=== PATIENT | female | born 1975 | race Caucasian/White ===

== ENCOUNTER → 2020-12-29 02:43 | Outpatient (CLI) | payer BC, SELFPAY ==
[2020-12-29 18:14] LABS: SARS-CoV-2 RNA PCR Negative
== END ==
PROVIDERS: Visit Provider Obstetrics & Gynecology
DX: Z01.812 Encounter for preprocedural laboratory examination (principal); Z20.822 Contact with and (suspected) exposure to COVID-19
CPT/HCPCS: C9803; U0003; U0005

== ENCOUNTER 2020-12-29 08:36 | Outpatient (CLI) | payer BC, SELFPAY ==
--- NOTE | 2020-12-29 08:45 | ECG_ITS ---
Measurements Intervals [place] Rate: 78 P: 38 DC: 202 QRS: 7 QRSD: 76 T: 6 QT: 366 QTc: 419 Interpretive Statements SINUS RHYTHM LOW QRS VOLTAGE IN PRECORDIAL LEADS BASELINE ARTIFACT- I, III, AVR, AVL, AVF, V1, V3 BORDERLINE ECG Electronically Signed On 12-29-2020 9:06:34 CDT by Bakari Lu D.O.
[2020-12-29 09:05] LABS: Anion Gap 9 mmol/L (8-16); Blood Urea Nitrogen 12 mg/dL (7-17); Calcium 10.1 mg/dL (8.4-10.2); Carbon Dioxide 27 mmol/L (22-30); Chloride 105 mmol/L (98-107); Estimated Glomerular Filt Rate > 60; Glucose 131 mg/dL (65-105); Potassium 4.4 mmol/L (3.4-5.0); Sodium 141 mmol/L (137-145)
== END 2020-12-29 08:37 | disposition home or self-care (01) ==
PROVIDERS: Anesthesiology; PCP Family Medicine; Visit Provider Obstetrics & Gynecology
DX: R10.2 Pelvic and perineal pain (principal); E11.9 Type 2 diabetes mellitus without complications; E78.5 Hyperlipidemia, unspecified; Z01.818 Encounter for other preprocedural examination
CPT/HCPCS: 36415; 80048; 81479; 86850; 86860; 86870; 86880; 86900; 86901; 86902; 86971; 93005

== ENCOUNTER 2021-01-01 01:21 | Day surgery (SDC) | payer BC, SELFPAY ==
[2020-12-21 09:44] VITALS: BMI 34.2
[2021-01-01] VITALS (14 sets, daily range): BP systolic 111–143; BP diastolic 68–83; PULSE 61–80; RESP 14–20; TEMP 36.4–37.2; O2SAT 96–100
--- NOTE | 2021-01-01 07:22 | WPDHPUPDATE1 ---
History and Physical Update Update Date/Time: 01/01/21 07:22 History and Physical has been reviewed, including an updated exam of the patient. There are NO changes in the patient's condition. Risks, benefits, and alternatives have been discussed and questions answered. Patient agrees to proceed with procedure.
[2021-01-01] MEDS: ACETAMINOPHEN 500 MG TABLET 1000 MG PO (07:47)
[2021-01-01] MEDS: LACTATED RINGERS 1,000 ML 30 ML IV CONT ×2 (07:55→10:35)
--- NOTE | 2021-01-01 07:58 | WPDANESEPPF ---
Anes - Initial Pre Proc Eval Procedure: Operation Date: 01/01/21 08:30 Proposed Procedures p Total Laparoscopic Hysterectomy with Bilateral Salpingo-Oophorectomy - Carline Bhatia MD Date/Time: 01/01/21 07:58 Surgeon: Carline Bhatia MD Pre Op Diagnosis: pelvic pain Patient Data Age: 45 Gender: F Height: 5 ft 5 in Weight: 93.44 kg Allergies Allergy/AdvReac Type Severity Reaction Status Date / Time No Known Allergies Allergy Verified 01/01/21 07:39 Home Medications Medication Instructions Recorded Confirmed Type atorvastatin 40 mg PO DAILY 12/21/20 01/01/21 History levothyroxine 100 mcg PO DAILY 12/21/20 01/01/21 History lisinopril 5 mg PO DAILY 12/21/20 01/01/21 History metformin 500 mg PO DAILY 12/21/20 01/01/21 History Patient hx anesthesia problems: none Family hx anesthesia problems: none PMFSH Past Medical History Medical History Diabetes Hyperlipidemia Hypertension Hypothyroid Social History Social History Smoking packs per day: 0.75 Smoking cigarettes per day: 15.0 Years smoked: 25 Smoking pack-years: 18.75 Smoking status: Current every day smoker Tobacco type: cigarettes Alcohol intake: current Drinks per week: 2 Substance use: never Substance use type: does not use Living arrangements: with family Spiritual care concerns: No Anes - Eval Final PreProcedure Day of Procedure 01/01/21 07:58 Patient weight: obese Heart: regular rate and rhythm Lungs: decreased breath sounds Airway: Mallampati scale class II Neurological: alert and oriented Last oral intake: >/= 8 hours ASA classification: III Emergent: no Anesthetic plan: proceed Anesthesia type and monitoring: general ETT and standard monitoring Informed Consent: The patient's anesthetic plan and its attendant risks and benefits were discussed with the patient/family/POA. Questions were solicited and answers provided to the satisfaction of the patient/family/POA.
[2021-01-01 08:00] LABS: Glucose Point of Care 172 mg/dl (65-105)
--- NOTE | 2021-01-01 08:04 | PM.PROC ---
Procedure Note - Detailed Date of procedure: 01/01/21 Pre-op diagnosis: pelvic pain Menorrhagia Post-op diagnosis: same Procedure performed: Hysteroscopy, endometrial ablation Description of procedure: The patient was taken the operating room. She has prepped and draped in the dorsal lithotomy position. Speculum was placed the vagina. The cervix grasped with a tenaculum. The cervix was injected at 3 and 9:00 a.m. with 1% lidocaine. The hysteroscope was inserted the intrauterine cavity through the cervix. The above findings were noted. The hysteroscope and uterine sound were used to calculate endometrial cavity length. The endometrial cavity length was entered into the device hand piece. The device was placed in the intrauterine cavity and the array was expanded. The balloon cuff was inflated. The power and safety checks were initiated. Never completed the array was collapsed and the balloon cuff was collapsed. The device was withdrawn. The hysteroscope was inserted back into the intrauterine cavity and well desiccated endometrial cavity was observed. The speculum was removed. The tenaculum was removed. The patient tolerated procedure well. She is take covering stable condition. Anesthesia: MAC Surgeon: Carline Bhatia MD Estimated blood loss (mL): 15 Drains: No Packing: No Pathology: yes Complications: No immediate complications Condition: stable Disposition: PACU Findings: Normal appearing vulva vagina and cervix., normal-appearing intrauterine cavity.
[2021-01-01] MEDS: ceFAZolin 2 GM/D5W 50 ML 2 GM/50 ML BAG IVPB (08:19)
[2021-01-01] MEDS: KETOROLAC 30 MG/ML VIAL (*BKC) IV PUSH ×2 (10:14→16:57)
--- NOTE | 2021-01-01 10:39 | P.OP_ITS ---
Procedure Note - Detailed Date of procedure: 01/01/21 Pre-op diagnosis: pelvic pain Severe menorrhagia Post-op diagnosis: same Procedure performed: Total laparoscopic hysterectomy bilateral salpingo- oophorectomy Description of procedure: The patient was taken to the operating room. She was prepped and draped in the dorsal lithotomy position. A speculum was placed in the vagina. The cervix was grasped with a tenaculum. Stay sutures were placed at 3 and 9:00 a.m. of 0 Vicryl. The stay sutures were brought through the Donna up. The DIMITRI manipulator was placed in the vagina with a fixed Donna cup. The cup was then pushed up around the cervix. The sutures were tied to the handle of the DIMITRI manipulator. A 5 mm incision was made on the abdominal skin of the left upper quadrant using a scalpel. A 5 mm trocar was inserted into the intra-abdominal cavity under direct visualization the scope. Pneumoperitoneum was achieved. An 11 mm incision was made in the left lower quadrant of the abdomen with a scalpel. A 11 mm trocar was inserted into the intra-abdominal cavity under direct visualization the scope. A 5 mm periumbilical incision was made. A 5 mm scope was placed into the intra-abdominal cavity under direct visualization of the scope. The ureters were identified. The ureters were observed to be away from the infundibulopelvic ligaments. These infundibulopelvic ligaments were isolated, cauterized, and transected with LigaSure cautery. This was done in a bilateral fashion. The para ovarian tissue along the pelvic sidewall was cauterized and transected in a bilateral fashion using the ligature cautery. The round ligaments were cauterized and transected bilaterally with LigaSure cautery. The broad ligaments were cauterized and transected along the lateral aspects of the uterus down the level of the uterine arteries. A bladder flap was created using sharp and blunt dissection. The ureters were dissected out bilaterally down to the level of the uterine arteries. The could be visualized from the pelvic brim down the uterine arteries. Staying very close to the cervix the parametrium was cauterized transected in a stepwise fashion down to the level of the Donna cup. The Bladder flap was moved distally over the Donna cup using sharp and blunt dissection. The cup was visualized and a complete 360 degree papillary around the cervix. An incision was made with unipolar cautery down under the Donna cup creating a colpotomy incision all the way around the cervix. The uterus tubes and ovaries were taken out through the vagina. A pneumo occluder was placed in the vagina. The vagina was closed with 0 V lock suture in a running fashion. The ureters were identified again and found to be intact elevated and the uterine arteries. The pelvis was irrigated with a copious amount of antibiotic irrigation. The pneumoperitoneum was reduced. The trocars were removed. The skin was closed subcuticular 4 Monocryl covered with Dermabond. The pneumo occluder was removed from the vagina. The vagina was irrigated with Betadine. The patient tolerated the procedure well. She was taken to the recovery room in stable condition. Sponge lap and needle counts were correct x2. Anesthesia: GETA Surgeon: Carline Bhatia MD Estimated blood loss (mL): 200 Drains: No Packing: No Pathology: yes Complications: No immediate complications Condition: stable Disposition: PACU Findings: Grossly normal-appearing uterus tubes and ovaries. Marked vascularity around uterus
[2021-01-01 10:44] LABS: Glucose Point of Care 205 mg/dl (65-105)
--- NOTE | 2021-01-01 10:58 | SUR.PHASEI ---
GLUCOSE 205 AT 1038, DR PACE NOTIFIED. NO ORDERS AT THIS TIME.
[2021-01-01] MEDS: fentaNYL CITRATE INJ (*CRX) 100 MCG/2 ML VIAL 25 MCG IV PUSH ×4 (11:43→12:06)
--- NOTE | 2021-01-01 12:12 | OBPPTRN ---
Addendum entered by Jonna Rodriguez RN 01/01/21 14:14: Patient transferred to post room # [id number] via bed. Support person present. Oriented to unit, room, information board, rooming in, admission packet and security measures. Patient verbalizes understanding. Original Note: Patient transferred to post room # via ( ). Support person present. Oriented to unit, room, information board, rooming in, admission packet and security measures. Patient verbalizes understanding.
[2021-01-01] MEDS: DEXTROSE 5%/0.45% SOD CHL 1,000 ML 125 ML IV CONT (12:51)
[2021-01-01] MEDS: metFORMIN HCL XR 500 MG TAB.SR.24H PO (12:51)
[2021-01-01] MEDS: ATORVASTATIN 40 MG TABLET PO (12:51)
[2021-01-01] MEDS: ESTRADIOL 7 DAY 0.05 MG PATCH TRANSDERM (12:51)
[2021-01-01] MEDS: HYDROcodone/acetaminophen (*CRX) 5-325 MG TABLET 1 TAB PO ×2 (13:02→22:22)
[2021-01-01] MEDS: lisinopriL 5 MG TABLET PO (13:02)
[2021-01-01 17:17] LABS: Glucose Point of Care 213 mg/dl (65-105)
[2021-01-01] MEDS: SODIUM CHLORIDE 0.9% IV 1,000 ML 125 ML IV CONT (17:41)
[2021-01-02 04:45] VITALS: BP 134/84; PULSE 90; RESP 16; TEMP 37.1
[2021-01-02] MEDS: HYDROcodone/acetaminophen (*CRX) 5-325 MG TABLET 1 TAB PO (04:50)
[2021-01-02] MEDS: LEVOTHYROXINE SODIUM 100 MCG TABLET PO (06:08)
[2021-01-02] MEDS: lisinopriL 5 MG TABLET PO (07:36)
[2021-01-02] MEDS: ATORVASTATIN 40 MG TABLET PO (07:36)
[2021-01-02] MEDS: metFORMIN HCL XR 500 MG TAB.SR.24H PO (07:36)
[2021-01-02 07:45] VITALS: BP 126/82; PULSE 91; RESP 16; TEMP 37.2; O2SAT 100
[2021-01-02] MEDS: IBUPROFEN 600 MG TABLET PO (09:01)
--- NOTE | 2021-01-02 09:48 | WPDANESPN ---
Anes - Prog Note Post-Op Date/Time: 01/02/21 09:48 Cardiovascular status: normal Respiratory status: normal Airway patency: baseline Mental status: baseline Post-Op hydration status: normal Vital Signs: Last Vital Signs Temp 37.2 C 01/02/21 07:45 Pulse 91 01/02/21 07:45 Resp 16 01/02/21 07:45 BP 126/82 01/02/21 07:45 Pulse Ox 100 01/02/21 07:45 Pain Score (VAS): 08/09 I/O: Intake & Output 01/01/21 01/02/21 01/02/21 23:59 07:59 15:59 Intake Total 1800 Output Total 1700 Balance 100 01/01/21 01/01/21 10:37 17:08 POC Capillary Glucose 205 H 213 H Post-procedural complaints: none Patient Feedback: Patient satisfied with anesthetic care.
--- NOTE | 2021-01-02 09:56 | PM.GYNPNOP ---
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:Subj Post-Op Subjective Date/time seen: 01/02/21 09:56 Subjective: patient reports feeling better, pain is well controlled and patient is tolerating oral intake Exam Const: General: cooperative, healthy appearing, comfortable and no acute distress Resp: Auscultation: no crackles, no rales, no rhonchi and no wheezes Cardio: Rhythm: regular rhythm Heart sounds: no click and no murmurs GI: Inspection: non-distended Auscultation: normal bowel sounds Other: Incisions - CDI Extrem: General: normal to inspection, no pedal edema and no calf tenderness 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 THREAD MACHINE 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 - PN: Obj Data Vital Signs Vital Signs: Vital Signs - 24 hr 01/01/21 10:35 01/01/21 10:45 01/01/21 11:00 Temperature 98 F Pulse Rate 72 63 67 Respiratory Rate 18 20 20 Blood Pressure 111/69 135/68 135/75 Pulse Oximetry 98 100 100 01/01/21 11:15 01/01/21 11:30 01/01/21 11:45 Temperature Pulse Rate 61 66 77 Respiratory Rate 14 14 15 Blood Pressure 130/83 137/69 130/73 Pulse Oximetry 100 99 98 01/01/21 12:00 01/01/21 12:07 01/01/21 12:20 Temperature 98.3 F Pulse Rate 74 71 64 Respiratory Rate 19 20 16 Blood Pressure 138/79 136/80 143/76 H Pulse Oximetry 96 97 96 01/01/21 13:00 01/01/21 17:00 01/01/21 19:30 Temperature 98.9 F 98.1 F Pulse Rate 78 67 Respiratory Rate 20 17 Blood Pressure 131/76 133/77 Pulse Oximetry 97 01/01/21 22:25 01/02/21 04:45 01/02/21 07:45 Temperature 98.0 F 98.7 F 98.9 F Pulse Rate 64 90 91 Respiratory Rate 17 16 16 Blood Pressure 130/71 134/84 126/82 Pulse Oximetry 100 Intake/Output Intake/Output: Intake & Output 12/30/20 12/31/20 01/01/21 01/02/21 23:59 23:59 23:59 23:59 Intake Total 200 1800 Output Total 160 1700 Balance 40 100 Meds/Results Medications: Active Medications Generic Name Dose Route Start Last Admin Trade Name Freq PRN Reason Stop Dose Admin Hydrocodone Bitart/Acetaminophen 1 tab 01/01/21 12:09 01/02/21 04:50 Hydrocodone/Acetaminophen (*Crx) 5-325 Mg Tablet PO 1 tab Q3H PRN Administration Pain Rated 5 or Less Hydrocodone Bitart/Acetaminophen 1 tab 01/01/21 12:09 Hydrocodone/Acetaminophen (*Crx) 10-325 Mg Tablet PO Q3H PRN Pain Rated 6 or Greater Atorvastatin Calcium 40 mg 01/01/21 13:00 01/02/21 07:36 Atorvastatin 40 Mg Tablet PO 40 mg DAILY LISA Administration Estradiol 0.05 mg 01/01/21 13:00 01/01/21 12:51 Estradiol 7 Day 0.05 Mg Patch TRANSDERM 0.05 mg WEEKLY LISA Administration Sodium Chloride 1,000 mls @ 125 mls/hr 01/01/21 17:20 01/01/21 17:41 Normal Saline Iv IV CONT 125 mls/hr .Q8H LISA Administration Ibuprofen 600 mg 01/01/21 12:09 01/02/21 09:01 Ibuprofen 600 Mg Tablet PO 600 mg Q6H PRN Administration Cramping Ketorolac Tromethamine 30 mg 01/01/21 12:09 01/01/21 16:57 Ketorolac 30 Mg/Ml Vial (*Bkc) IV PUSH 01/06/21 12:10 30 mg Q6H PRN Administration Pain Rated 4-6 Levothyroxine Sodium 100 mcg 01/02/21 06:30 01/02/21 06:08 Levothyroxine Sodium 100 Mcg Tablet PO 100 mcg DAILY@0630 LISA Administration Lisinopril 5 mg 01/01/21 13:00 01/02/21 07:36 Lisinopril 5 Mg Tablet PO 5 mg DAILY LISA Administration Metformin HCl 500 mg 01/01/21 13:00 01/02/21 07:36 Metformin Hcl Xr 500 Mg Tab.Sr.24h PO 500 mg DAILY LISA Administration Naloxone HCl 0.1 mg 01/01/21 12:09 Naloxone
== END 2021-01-02 10:11 | disposition home or self-care (01) ==
LOC: ANHSURGERY 08:10 → ANHOB2 12:13
PROVIDERS: PCP Family Medicine; Visit Provider Obstetrics & Gynecology
PROC: 0UT9FZZ Resection of Uterus, Via Natural or Artificial Opening With Percutaneous Endoscopic Assistance (ICD-10-PCS; CPT 58571; principal; 2021-01-01 08:30)
DX: R10.2 Pelvic and perineal pain (principal); N92.1 Excessive and frequent menstruation with irregular cycle; N73.6 Female pelvic peritoneal adhesions (postinfective); N83.8 Other noninflammatory disorders of ovary, fallopian tube and broad ligament; N83.02 Follicular cyst of left ovary; N83.01 Follicular cyst of right ovary; I10 Essential (primary) hypertension; E11.9 Type 2 diabetes mellitus without complications; E78.5 Hyperlipidemia, unspecified; E03.9 Hypothyroidism, unspecified; Z79.84 Long term (current) use of oral hypoglycemic drugs; F17.210 Nicotine dependence, cigarettes, uncomplicated; E66.9 Obesity, unspecified; Z68.34 Body mass index [BMI] 34.0-34.9, adult
CPT/HCPCS: 58571; 82948; 88307; 99199; A9270; J0690; J1885; J2250; J3010; J7030; J7120